=== PATIENT | male | born 1990 | race Caucasian/White ===

== ENCOUNTER 2019-02-13 19:46 | Emergency (ER) | payer BC ==
[2019-02-13 20:11] VITALS: BP 154/89
--- NOTE | 2019-02-13 20:27 | UC ---
Skin Complaint HPI - HPI Summary HPI Summary: here with --Sunday noticed rash below testicles, past few days noticed some "bumps" in that same area, last night felt a "pressure" in both groins, feels like there are "lumps" in groin; -otherwise feels well, has not been sick - History of Current Complaint Chief Complaint: UCSkin Time Seen by Provider: 02/13/19 20:10 Stated Complaint: SKIN COMPLAINT,GROIN PAIN Hx Obtained From: Patient Onset/Duration: Sudden Onset, Lasting Days Skin Exposure Onset/Duration: Days Ago Timing: Constant Onset Severity: Mild Current Severity: None Pain Intensity: 2 Character: Exposure to Heat Continuous, Pruritus, Redness Aggravating Factor(s): Nothing Associated Signs & Symptoms: Positive: Rash - Allergy/Home Medications Allergies/Adverse Reactions: Allergies Allergy/AdvReac Type Severity Reaction Status Date / Time No Known Allergies Allergy Verified 02/13/19 20:13 Home Medications: Home Medications NK [No Home Medications Reported] 02/13/19 [History Confirmed 02/13/19] PMH/Surg Hx/FS Hx/Imm Hx Previously Healthy: Yes - Surgical History Surgical History: None - Family History Known Family History: Positive: Hypertension - Social History Alcohol Use: None Substance Use Type: None Smoking Status (MU): Never Smoked Tobacco Review of Systems All Other Systems Reviewed And Are Negative: Yes Skin: Positive: Rash Genitourinary: Positive: Other - swollen lymph node in left inguinal area Motor: Positive: Negative Neurovascular: Positive: Negative Musculoskeletal: Positive: Negative Neurological: Positive: Negative Psychological: Positive: Negative Is Patient Immunocompromised?: No Physical Exam Triage Information Reviewed: Yes Appearance: Well-Appearing, Well-Nourished, Pain Distress Vital Signs: Initial Vital Signs Temp 98.1 F 02/13/19 20:05 Pulse 78 02/13/19 20:05 Resp 16 02/13/19 20:05 BP 154/89 02/13/19 20:05 Pulse Ox 98 02/13/19 20:05 Vital Signs Reviewed: Yes Eye Exam: Normal ENT Exam: Normal Dental Exam: Normal Neck exam: Normal Cardiovascular Exam: Normal Abdominal Exam: Normal Bowel Sounds: Positive: Present Male Genital Exam: Positive: Normal Genitalia, Inguinal Tenderness - left side, swollen lymph node palpated, red, raised area of erythema under the testicles Musculoskeletal Exam: Normal Neurological Exam: Normal Psychological Exam: Normal Skin Exam: Normal Course/Dx - Course Course Of Treatment: hx obtained, exam performed ,meds reviewed, no treatment at this time - Differential Diagnoses - Skin Complaint Differential Diagnoses: Abscess, Cellulitis, Contact Dermatitis, Urticaria - Diagnoses Provider Diagnosis: Heat rash, Swollen lymph nodes Discharge - Sign-Out/Discharge Documenting (check all that apply): Patient Departure All imaging exams completed and their final reports reviewed: No Studies - Discharge Plan Condition: Stable Disposition: HOME Patient Education Materials: Lymphadenopathy (ED) Referrals: No Primary Care Phys,NOPCP [Primary Care Provider] - Additional Instructions: 1. allow the affected area to breath. 2. The swollen lymph nodes should go away with the rash. if it does not, follow p with your doctor. - Billing Disposition and Condition Condition: STABLE Disposition: Home
== END 2019-02-13 20:35 | disposition home or self-care (01) ==
LOC: UCCORT 19:46
DX: L74.0 Miliaria rubra (principal); R59.0 Localized enlarged lymph nodes
CPT/HCPCS: 99201; G0463